=== PATIENT | female | born 1965 | race Caucasian/White ===

== ENCOUNTER 2019-05-18 12:42 | Emergency (ER) | payer BC, OTHER ==
[2019-05-18 15:58] VITALS: BP 133/81
--- NOTE | 2019-05-18 16:07 | UC ---
Eye Complaint HPI - HPI Summary HPI Summary: Pt presents with c/o sudden onset left eye pain and redness that began this afternoon. Denies injury, chemical exposure or FB - History of Current Complaint Chief Complaint: UCEye Stated Complaint: EYE IRRITATION Time Seen by Provider: 05/18/19 15:54 Hx Obtained From: Patient Hx Last Menstrual Period: N/A ?: No Onset/Duration: Sudden Onset, Lasting Hours, Still Present Timing: Constant Severity Initially: Mild Severity Currently: Mild Pain Intensity: 0 Aggravating Factor(s): Light Alleviating Factor(s): Nothing Associated Signs And Symptoms: Positive: Drainage (Clear) - Risk Factors Penetrating Injury Risk Factor: Negative Acute Glaucoma Risk Factors: Negative Optic Artery Occlusion Risk Factors: Negative - Allergies/Home Medications Allergies/Adverse Reactions: Allergies Allergy/AdvReac Type Severity Reaction Status Date / Time amoxicillin Allergy Hives Verified 05/18/19 15:59 codeine Allergy Hives Verified 05/18/19 15:59 meperidine [From Demerol] Allergy Hives Verified 05/18/19 15:59 Home Medications: Home Medications Omeprazole 40 mg PO DAILY 05/18/19 [History Confirmed 05/18/19] PMH/Surg Hx/FS Hx/Imm Hx Previously Healthy: Yes - Surgical History Surgical History: Yes Surgery Procedure, Year, and Place: GALLBLADDER 2006, APPY 1985,HYSTERCTOMY - Family History Known Family History: Positive: Cardiac Disease - Social History Occupation: Employed Full-time Lives: With Family Alcohol Use: Occasionally Substance Use Type: None Smoking Status (MU): Never Smoked Tobacco Have You Smoked in the Last Year: No Review of Systems All Other Systems Reviewed And Are Negative: Yes Constitutional: Positive: Negative Skin: Positive: Negative Eyes: Positive: Drainage, Eye Redness, Photophobia ENT: Positive: Negative Respiratory: Positive: Negative Cardiovascular: Positive: Negative Gastrointestinal: Positive: Negative Genitourinary: Positive: Negative Motor: Positive: Negative Neurovascular: Positive: Negative Musculoskeletal: Positive: Negative Neurological: Positive: Negative Psychological: Positive: Negative Is Patient Immunocompromised?: No Physical Exam Triage Information Reviewed: Yes Appearance: Well-Appearing Vital Signs: Initial Vital Signs Temp 99.2 F 05/18/19 15:53 Pulse 92 05/18/19 15:53 Resp 18 05/18/19 15:53 BP 133/81 02/02/20 15:53 Pulse Ox 96 05/18/19 15:53 Vital Signs Reviewed: Yes Eyes: Positive: Conjunctiva Inflamed, Discharge - clear ENT Exam: Normal Dental Exam: Normal Neck exam: Normal Respiratory: Positive: No respiratory distress Musculoskeletal Exam: Normal Neurological Exam: Normal Psychological Exam: Normal Skin Exam: Normal Eye Complaint Course/Dx - Differential Dx/Diagnosis Differential Diagnosis/HQI/PQRI: Conjunctivitis Provider Diagnosis: Conjunctivitis Discharge ED - Sign-Out/Discharge Documenting (check all that apply): Patient Departure All imaging exams completed and their final reports reviewed: No Studies - Discharge Plan Condition: Stable Disposition: HOME Prescriptions: Polymyx/Trimethoprim OPTH* [Polytrim OPHTH*] 2 drop LEFT EYE Q4H 7 Days #1 btl Patient Education Materials: Conjunctivitis (ED) Referrals: Di Reyna MD [Primary Care Provider] - If Needed Additional Instructions: Please follow up with your Eye care provider as soon as possible. - Billing Disposition and Condition Condition: STABLE Disposition: Home
== END 2019-05-18 16:17 | disposition home or self-care (01) ==
LOC: UCCORT 12:42
DX: H10.9 Unspecified conjunctivitis (principal); Z88.0 Allergy status to penicillin; Z88.5 Allergy status to narcotic agent
CPT/HCPCS: 99202; G0463